=== PATIENT | male | born 1980 | race Hispanic/Latino ===

== ENCOUNTER 2017-01-28 06:26 | Emergency (ER) | payer BC, OTHER ==
[2017-01-28 06:31] VITALS: BMI 35.2
[2017-01-28] MEDS ORDERED: Oxycodone/Acetaminophen 5/325 mg Tab PO STA (07:22)
--- NOTE | 2017-01-28 08:18 | ED PDOC ---
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 Pt furthermore deneis any fevers/saddle anesthesia/recet GI symptomatology/ nor muscle weakness although due to reluctance in am after pain worsened through night ambulation was difficult. Pain commenced at home after work. Denies any dyuria. 01/28/17 08:15 Time/Duration: < week Symptom Onset: Gradual Symptom Course: Worsening Quality: Aching Past Medical History - Provider Review Nursing Documentation Reviewed: Yes - Hematological/Oncological Hx Blood Transfusions: No Hx Blood Transfusion Reaction: No - Musculoskeletal/Rheumatological Hx Falls: No - Psychiatric Hx Depression: No Hx Emotional Abuse: No Hx Physical Abuse: No Hx Substance Use: No - Anesthesia Hx Anesthesia Reactions: No Hx Malignant Hyperthermia: No - Suicidal Assessment Feels Threatened In Home Enviroment: No Family/Social History - Physician Review Nursing Documentation Reviewed: Yes Family/Social History: No Known Family HX Smoking Status: Never Smoked Hx Alcohol Use: No Hx Substance Use: No Hx Substance Use Treatment: No Allergies/Home Meds Allergies/Adverse Reactions: Allergies No Known Allergies Allergy (Verified 01/28/17 06:31) Review of Systems - Physician Review All systems were reviewed & negative as marked: Yes - Review of Systems Constitutional: Normal Eyes: Normal ENT: Normal Respiratory: Cough, Sputum Cardiovascular: Chest Pain Gastrointestinal: Nausea, Vomiting Genitourinary Male: Normal Musculoskeletal: Normal Skin: Normal Neurological: Normal Endocrine: Normal Hemo/Lymphatic: Normal Psychiatric: Normal Physical Exam Vital Signs Reviewed: Yes Vital Signs Temp Pulse Resp BP Pulse Ox 01/28/17 07:04 98.0 F 83 18 140/91 H 98 Temperature: Afebrile Blood Pressure: Normal Pulse: Regular Respiratory Rate: Normal Appearance: Positive for: Well-Appearing, Non-Toxic, Comfortable Pain Distress: None Mental Status: Positive for: Alert and Oriented X 3 - Systems Exam Head: Present: Atraumatic, Normocephalic Pupils: Present: PERRL Extroacular Muscles: Present: EOMI Conjunctiva: Present: Normal Mouth: Present: Moist Mucous Membranes Neck: Present: Normal Range of Motion Respiratory/Chest: Present: Clear to Auscultation, Good Air Exchange. No: Respiratory Distress, Accessory Muscle Use Cardiovascular: Present: Regular Rate and Rhythm, Normal S1, S2. No: Murmurs Abdomen: Present: Normal Bowel Sounds. No: Tenderness, Distention, Peritoneal Signs Back: Present: Midline Tenderness, Other (mid ls spine ttp ) Upper Extremity: Present: Normal Inspection. No: Cyanosis, Edema Lower Extremity: Present: Normal Inspection. No: Edema Neurological: Present: GCS=15, CN II-XII Intact, Speech Normal, Motor Func Grossly Intact, Normal Sensory Function, Normal Cerebellar Funct, Norm Deep Tendon Reflexes, Other (slr (-) b/l , no defictis w/ heel/toe walking ) Skin: Present: Warm, Dry, Normal Color. No: Rashes Psychiatric: Present: Alert, Oriented x 3, Normal Insight, Normal Concentration Medical Decision Making ED Course and Treatment: 36 y/o male p/w leikly lumbosacral starin , serial neruological exams intact, trial of muscle relaxants/nsaids/percocet discharge on similar w/ back pain return directions. 01/28/17 08:19 01/28/17 08:36 serial neurological exams benign, june palliated, ambulating without gait deficit. Pain controlled. Reassessment Condition: Re-examined, Improved - Medication Orders Current Medication Orders: Discontinued Medications Cyclobenzaprine HCl (Flexeril) 10 mg PO STAT STA Stop: 01/28/17 07:23 Last Admin: 01/28/17 07:35 Dose: 10 mg Ketorolac Tromethamine (Toradol) 60 mg IM STAT STA Stop: 01/28/17 07:22 Last Admin: 01/28/17 07:34 Dose: 60 mg MAR Pain Assessment Document 01/28/17 07:34 TA (Rec: 01/28/17 07:35 TA [id number]) Pain Reassessment Is this a pain reassessment? No Sleep Is patient sleeping during reassessment? No Presence of Pain Presence of Pain No Pain Scale Used Pain Scale Used Numeric Location Upper or Lower Lower Pain Location Body Site Back Description Description Constant Pain Behavior Moaning Withdrawal from Touch IM Administration Charges Document 01/28/17 07:34 TA (Rec: 12/16/17 07:35 TA [id number]) Injection Site MAR Injection Site Left Deltoid Charges for Administration # of IM Administrations 1 Oxycodone/Acetaminophen (Percocet 5/325 Mg Tab) 1 tab PO STAT STA Stop: 01/28/17 07:23 Last Admin: 01/28/17 07:35 Dose: 1 tab MAR Pain Assessment Document 01/28/17 07:35 TA (Rec: 01/28/17 07:35 TA [id number]) Pain Reassessment Is this a pain reassessment? No Sleep Is patient sleeping during reassessment? No Presence of Pain Presence of Pain Yes Pain Scale Used Pain Scale Used Numeric Location Upper or Lower Lower Pain Location Body Site Back Description Description Constant Pain Behavior Moaning Aggravating Factors ADL's Disposition/Present on Arrival - Present on Arrival Any Indicators Present on Arrival: No History of DVT/PE: No History of Uncontrolled Diabetes: No Urinary Catheter: No History of Decub. Ulcer: No History Surgical Site Infection Following: None - Disposition Have Diagnosis and Disposition been Completed?: Yes Diagnosis: Lumbosacral strain Disposition: HOME/ ROUTINE Disposition Time: 08:38 Patient Plan: Discharge Condition: IMPROVED Discharge Instructions (ExitCare): Back Exercises (ED), Sacroiliitis (ED), Back Pain (ED) Print Language: ROMANIAN Additional Instructions: Rest , avoid heavy lifting, lift from your knees in general when lifting. strecthig uin genereal in the future once warmed up will help avoid spasms. Wearing a back brace can help with manual work. Pain should subside and delgado over the next 1-2 weeks. If in 4-6 weeks your pain is still present add wroseining then follow up with your primary . Prescriptions: Cyclobenzaprine [Flexeril] 10 mg PO Q8 PRN #20 tab PRN Reason: Pain, Moderate (4-7) Ibuprofen [Motrin Tab] 600 mg PO Q6 PRN #50 tab PRN Reason: Pain, Moderate (4-7) oxyCODONE/Acetaminophen [Percocet 5/325 mg Tab] 1 ea PO Q8 PRN #12 tab PRN Reason: Pain, Severe (8-10) Forms: [facility] ([place])
[2017-01-28 08:53] VITALS: BP 128/84; PULSE 72; RESP 16; TEMP 98.6; O2SAT 99
== END 2017-01-28 08:51 | disposition home or self-care (01) ==
LOC: ED 06:26
DX: S39.012A Strain of muscle, fascia and tendon of lower back, initial encounter (principal); X58.XXXA Exposure to other specified factors, initial encounter; Y92.89 Other specified places as the place of occurrence of the external cause
CPT/HCPCS: 96372; 99282; J1885